=== PATIENT | male | born 1990 | race Caucasian/White ===

== ENCOUNTER 2017-04-25 15:31 | Emergency (ER) | payer SELFPAY ==
[~2017-04-25] VITALS: Ht 175.3 cm; Wt 61.0 kg
[2017-04-25 15:43] VITALS: TEMP 36.7; Ht 175.3 cm; Wt 61.0 kg
[2017-04-25] MEDS ORDERED: LDXCR30 TOP (15:59)
--- NOTE | 2017-04-25 16:01 | EMERGENCY ROOM VISIT NOTE ---
ED Visit Note First contact with patient: 15:47 CHIEF COMPLAINT: Psoriasis around eyes HISTORY OF PRESENT ILLNESS: This 26 year old male patient presents to the emergency department, ambulatory, complaining of a rash around his eyes which started 5-6 days ago. He does have a history of Psoriasis, and has gotten it on his face like this before and was started on a prescription steroid cream. The patient denies fever, chills, nausea, or loss of appetite. They deny any URI symptoms. The patient has an OTC cream he normally uses for his psoriasis, but has not used this on his face. The patient states the rash is itchy and rates the discomfort as 0/10. No change in food, soap, detergents, or other environmental factors. No new medications. No weakness or numbness. REVIEW OF SYSTEMS: A 6 system review of systems was completed with positives and pertinent negatives listed in the HPI. ALLERGIES: None MEDICATIONS: Psoriasin PMH: Psoriasis SOCIAL HISTORY: The patient lives locally with family. He denies drug, alcohol use. The patient admits to smoking one half pack cigarettes per day. PHYSICAL EXAM: Vital Signs: Reviewed Nurse's notes, vital signs stable. GENERAL : This is a 26-year-old white male, in no acute distress, well-developed, well- nourished. SKIN: Erythematous patchy plaques noted surrounding both eyes and over the forehead. There is no drainage. Capillary refill less than 2 seconds. EMERGENCY DEPARTMENT COURSE: Was seen and evaluated as above. Up-to-date recommendations include 1% hydrocortisone cream for psoriasis surrounding the eyes. I did recommend that the patient try this first, and advised him if this does not help, to use the prescription cream. The patient was encouraged to follow-up with a toll mechanic. Discharge instructions were reviewed and the patient was discharged home in good condition. I attest that I have personally reviewed the patient's current medication list. Patient was found to have normal blood pressure on screening and does not require follow-up. DIFFERENTIAL DIAGNOSIS: Psoriasis, eczema, dermatitis, fungal infection, malignancy, and others DIAGNOSIS: Psoriasis Current/Historical Medications Scheduled Diflorasone Diacetate (Psorcon), 1 APPL TD PRN UD Fluocinonide (Lidex 0.05% Cream), 1 APPLN TOP QD Allergies Coded Allergies: No Known Allergies (Unverified , 07/04/14) Vital Signs Date Time Temp Pulse Resp B/P (MAP) Pulse Ox O2 Delivery O2 Flow Rate FiO2 04/25/17 16:21 67 16 118/77 96 04/25/17 15:43 36.7 67 16 118/77 96 Room Air Departure Information Impression Primary Impression: Psoriasis Dispostion Home / Self-Care Condition GOOD Prescriptions Fluocinonide (LIDEX 0.05% CREAM) 90 Appln/30 Gm Cr 1 APPLN TOP QD for 5 Days, #1 TUBE Prov: Yamilka Ellison PA-C 04/25/17 Referrals No Doctor, Assigned (PCP) Luis Alberto Fernandes MD Patient Instructions ED Psoriasis, [facility] Additional Instructions You were seen in the emergency department for psoriasis. As discussed, using steroids on the face is not strongly encouraged. Use 1% hydrocortisone cream first line on the face for no more than 3-5 days. If this does not help, he may use the slightly stronger fluocinonide cream was sent to the pharmacy for you. Do not exceed 5 days at the time of using a steroid on the face. Please consider follow-up with dermatology. You have been provided the contact information for a local toll mechanic. Return to the emergency department for worsening symptoms despite outlined treatment course above.
[2017-04-25 16:21] VITALS: BP 118/77; PULSE 67; O2SAT 96
[2017-04-25] MEDS ORDERED: [UNRECOGNIZED DRUG - CODE] TD (16:28)
== END 2017-04-25 16:22 | disposition home or self-care (01) ==
LOC: C.EDB 15:34 → C.EDD 16:22
DX: L40.9 Psoriasis, unspecified (principal); F17.210 Nicotine dependence, cigarettes, uncomplicated